=== PATIENT | male | born 1950 | race Caucasian/White ===

== ENCOUNTER 2016-09-20 17:32 | Emergency (ER) | payer MEDICARE ==
[~2016-09-20 17:32] MED LIST: ADULT ASPIRIN81 MG PO; CARAFATE1 G PO; GLUCOSAMINE &1 EACH PO; NEXIUM40 MG PO; PERCOCET 5/3251 TAB PO; [UNRECOGNIZED DRUG - OTHER] PO
[2016-09-20] MEDS ORDERED: XARELTO20 M1 PO (17:45)
[2016-09-20] MEDS ORDERED: NEXIUM40 M1 PO (17:45)
[2016-09-20] MEDS ORDERED: LAMISIL250 M1 PO (17:46)
[2016-09-20] MEDS ORDERED: ASPIRIN81 M1 PO (17:46)
== END 2016-09-20 19:21 ==
LOC: EDMED 17:32
PROC: 3E0U33Z Introduction of Anti-inflammatory into Joints, Percutaneous Approach (ICD-10-PCS; principal; 2016-09-20)
DX: M25.562 Pain in left knee (principal); Z86.711 Personal history of pulmonary embolism; Z79.01 Long term (current) use of anticoagulants
CPT/HCPCS: J1040